=== PATIENT | female | born 1965 | race Caucasian/White ===

== ENCOUNTER 2024-11-30 21:27 | Emergency (ER) | payer MEDICAID, SELFPAY ==
--- NOTE | ~2024-11-30 | CT_ITS ---
EXAMINATION: CTA chest PE abdomen pel DATE: 12/01/2024 0:00 CDT INDICATION: Shortness of breath. Chest tightness with nausea. Plasma donation earlier today TECHNIQUE: Computed tomographic angiography (CTA) of the chest was performed, along with multiple con tiguous axial images of the abdomen and pelvis with 100 mL Omnipaque-350 intravenous contrast. The do se-length product was 2115.24 mGy-cm. Maximum intensity projection 3D-reconstructions of the aorta an d other arteries were constructed by the technologist on a separate workstation. FINDINGS/OBSERVATIONS: PULMONARY ARTERIES: No filling defect is identified within the main or proximal pulmonary artery. The main pulmonary artery is not enlarged. THORACIC AORTA: No aneurysmal dilatation or dissection is present. The great vessels are intact LUNGS: The lungs are clear MEDIASTINUM: No morphologically suspicious or pathologically enlarged lymph nodes are identified with in the mediastinum or bilateral axilla. BONES OF THE CHEST: No acute fracture. No significant degenerative disease. No lytic or blastic lesions. HEART: The heart is of normal size, without pericardial effusion. LIVER: The liver enhances homogeneously and is enlarged measuring 19 cm in longitudinal dimension. GALLBLADDER AND BILIARY SYSTEM: The gallbladder is only minimally distended, and otherwise unremarkable. PANCREAS: The pancreas enhances homogeneously without ductal dilatation. SPLEEN: The spleen enhances homogeneously and is not enlarged measuring 8 cm in longitudinal dimension. KIDNEYS: The bilateral kidneys enhance symmetrically without hydronephrosis or renal calculi. ADRENAL GLANDS: Unremarkable. GASTROINTESTINAL TRACT: Retained gastric contents within the distended stomach suggesting recent oral intake. Significant fecal stasis within the colon. Colonic diverticulosis without surrounding inflammatory change. APPENDIX: The air-filled appendix is of normal caliber (axial series, images 116 through 130). VASCULATURE: Unremarkable. No aneurysmal dilatation or significant stenosis. LYMPH NODES: No pathologically enlarged or morphologically suspicious lymph nodes within the retroperitoneum or at the root of the mesentery. PELVIC STRUCTURES: The bladder is only minimally distended, and otherwise unremarkable. The uterus is anteverted and anteflexed BODY WALL AND MUSCULOSKELETAL: Small fat-containing umbilical hernia. Straightening of the normal lordotic curvature of the lumbar spine, likely muscular in origin. No sig nificant degenerative disease within the thoracic or lumbosacral spines. IMPRESSION: No pulmonary embolus. No aortic dissection. The lungs are clear. Hepatomegaly. No acute pathology within the abdomen or pelvis, as detailed above. Reviewed, dictated and finalized at location A.
--- NOTE | 2024-11-30 21:33 | ECG_ITS ---
Test Date: 2024-11-30 21:51:04 Measurements Intervals [place] Rate: 49 P: 33 SD: 145 QRS: -48 QRSD: 88 T: 46 QT: 428 QTc: 387 Interpretive Statements SINUS BRADYCARDIA LOW QRS VOLTAGE IN PRECORDIAL LEADS [QRS DEFLECTION < 1.0 mV IN CHEST LEADS] PATTERN CONSISTENT WITH PULMONARY DISEASE LEFT ANTERIOR FASCICULAR BLOCK [QRS AXIS <= -45, QR IN I, RS IN II] ABNORMAL ECG No previous ECG available for comparison Electronically Signed On 12-01-2024 12:22:56 CDT by Michel Woody M.D.
[2024-11-30 21:55] VITALS: BP 147/86; PULSE 47; RESP 16; TEMP 36.6; O2SAT 100
[2024-11-30 22:38] VITALS: BP 160/103; PULSE 60; RESP 17; O2SAT 100
[2024-11-30 22:54] LABS: Basophils Absolute Auto 0.1 K/mm3 (0.0-0.1); Basophils Percent Auto 0.6 % (0.2-1.2); Eosinophils Absolute Auto 0.3 K/mm3 (0-0.3); Eosinophils Percent Auto 2.5 % (0-4.4); Hematocrit 42.6 % (37.0-47.0); Hemoglobin 14.1 g/dL (12.0-15.0); Immature Granulocyte Absolute 0.05 K/mm3 (0.00-0.031); Immature Granulocyte Percent A 0.5 % (0-0.5); Lymphocytes Absolute Auto 3.35 K/mm3 (0.9-3.2); Lymphocytes Percent Auto 31.9 % (18.3-44.2); Mean Corpuscular HGB Conc 33.1 g/dl (32-36); Mean Corpuscular Hemoglobin 29.1 pg (26-34); Mean Platelet Volume 10.1 fl (7.4-10.4); Monocytes Percent Auto 9.6 % (2.6-8.5); Neutrophils Absolute Auto 5.8 K/mm3 (1.3-6.7); Neutrophils Percent Auto 54.9 % (45.5-73.1); Platelet Count Result 280 k/mm3 (150-375); Red Blood Count 4.84 M/mm3 (4.2-5.4); Red Cell Distribution Width 13.1 % (11.5-14.5); White Blood Count 10.5 K/mm3 (4.5-10.0)
[2024-11-30 23:07] LABS: Alanine Aminotransferase 28 U/L (6-35); Albumin Level 4.3 g/dL (3.5-5.1); Alkaline Phosphatase 105 U/L (38-126); Anion Gap 12 mmol/L (4-12); Aspartate Amino Transferase 29 U/L (14-36); Bilirubin,Total 1.3 mg/dL (0.2-1.3); Blood Urea Nitrogen 16 mg/dL (7-17); Calcium 9.3 mg/dL (8.4-10.2); Carbon Dioxide 23 mmol/L (22-30); Chloride 105 mmol/L (98-107); Estimated CRCL calculation 69 ml/min; Estimated Glomerular Filt Rate > 60; Glucose 106 mg/dL (65-110); Lipase 75 U/L (23-300); Potassium 4.3 mmol/L (3.4-5.0); Sodium 140 mmol/L (137-145)
[2024-11-30 23:28] LABS: Partial Thromboplastin Time 29.9 Seconds (22.3-36.8); Prothrombin Time 13.7 Seconds (11.1-14.7); Troponin I < 0.012 ng/mL (0.000-0.034)
[2024-11-30] MEDS: SODIUM CHLORIDE 0.9% IV 1,000 ML 999 ML IV CONT (23:35)
--- NOTE | 2024-11-30 23:41 | PC.NURSE ---
Patient refused covid swab. EDP notified and verbalized the okay to cancel order.
[2024-12-01 00:02] LABS: D Dimer < 0.27 ug/mL (<0.48)
[2024-12-01 00:11] LABS: Lactic Acid Reflex 1.2 mmol/L (0.7-2.0)
[2024-12-01 00:25] VITALS: PULSE 63; RESP 17; O2SAT 97
[2024-12-01 00:29] LABS: Add Urine Microscopic? YES; Appearance Urine Cloudy (Clear); Bacteria Urine None Seen /hpf; Bilirubin Urine Negative (Negative); Blood Urine Negative (Negative); Color Urine Yellow (Yellow); Glucose Urine UA Negative (Negative); Ketones Urine Trace mg/dL (Negative); Leukocyte Esterase Ur 1+ LEU/UL (Negative); Nitrate Urine Negative (Negative); Non Pathogenic Casts 0-2; Protein Urine Negative (Negative); RBC Urine 0-2 /hpf (0-2); Specific Grav Ur > 1.045 (1.001-1.035); Squamous Epithelial Cell Urine None Seen /hpf (Few)
--- NOTE | 2024-12-01 00:33 | ED.GENADULT ---
HPI - General Adult General Chief complaint: Nausea/Vomiting/Diarrhea Stated complaint: Nausea, left neck/upper back pain-gave Plasma toda Time Seen by Provider: 11/30/24 22:53 History of Present Illness HPI narrative: Patient is a 59-year-old female who presents emergency department with chief complaint of left-sided neck and upper back pain patient reports she gave plasma today and was told to watch for signs of blood clot the patient states she had veins that blue during the procedure and reports that she has felt a little short of breath and some tightness in her chest. The patient states that when she has been breathing this where little bit of a tingling around her mouth the patient denies weakness in her arms or legs Related Data Allergies Allergy/AdvReac Type Severity Reaction Status Date / Time epinephrine Allergy Severe Anaphylaxis Verified 11/30/24 21:31 Review of Systems Review of Systems: A 10 system review of systems was completed on the patient and is negative except for what is stated in the HPI. Nursing and ancillary documentation was reviewed. Exam Narrative: GENERAL: Well-appearing, well-nourished, and in no acute distress. HEAD: Normocephalic, atraumatic. EYES: PERRLA and EOMI. ENT: Nares clear, no rhinorrhea or epistaxis. Mucous membranes moist. NECK: Supple. CHEST: Clear to auscultation. No respiratory distress. HEART: Regular rate and rhythm. No murmur heard. Normal peripheral pulses. ABDOMEN: Soft, nontender, nondistended, normal active bowel sounds. EXTREMITIES: Normal range of motion. No edema. SKIN: Warm, dry, no rash. There is bruising present in the left antecubital fossa NEURO: No focal deficits. Alert and oriented x3. PSYCH: Normal mood and affect. Course Vital Signs Vital signs: Vital Signs Temperature 36.6 C 11/30/24 21:55 Pulse Rate 47 L 11/30/24 21:55 Respiratory Rate 16 11/30/24 21:55 Blood Pressure 147/86 H 11/30/24 21:55 Pulse Oximetry 100 11/30/24 21:55 Temperature 36.6 C 11/30/24 21:55 Pulse Rate 63 12/01/24 00:25 Respiratory Rate 17 12/01/24 00:25 Blood Pressure 160/103 H 11/30/24 22:38 Pulse Oximetry 97 12/01/24 00:25 Medical Decision Making [facility] Narrative Medical decision making narrative: Differential diagnosis includes pulmonary embolism, upper extremity DVT, electrolyte abnormality, UTI Laboratory studies were obtained showed normal CBC troponin was negative the D-dimer was negative urinalysis showed 1+ leukocyte esterase and 11-20 white blood cells urine CTA chest with abdomen pelvis showed No pulmonary embolus. No aortic dissection. The lungs are clear. Hepatomegaly. No acute pathology within the abdomen or pelvis, as detailed above. Vital Signs Vital Signs: Vital Signs Temperature 36.6 C 11/30/24 21:55 Pulse Rate 47 L 11/30/24 21:55 Respiratory Rate 16 11/30/24 21:55 Blood Pressure 147/86 H 11/30/24 21:55 Pulse Oximetry 100 11/30/24 21:55 Temperature 36.6 C 11/30/24 21:55 Pulse Rate 63 12/01/24 00:25 Respiratory Rate 17 12/01/24 00:25 Blood Pressure 160/103 H 11/30/24 22:38 Pulse Oximetry 97 12/01/24 00:25 Lab Data 11/30/24 22:48 11/30/24 22:48 Labs: Lab Results 11/30/24 11/30/24 12/01/24 Range/Units 22:48 23:38 00:18 WBC 10.5 H (4.5-10.0) K/mm3 RBC 4.84 (4.2-5.4) M/mm3 Hgb 14.1 (12.0-15.0) g/dL Hct 42.6 (37.0-47.0) % MCV 88.0 (80-100) fl MCH 29.1 (26-34) pg MCHC 33.1 (32-36) g/dl RDW 13.1 (11.5-14.5) % Plt Count 280 (150-375) k/mm3 MPV 10.1 (7.4-10.4) fl Immature Gran % (Auto) 0.5 (0-0.5) % Neut % (Auto) 54.9 (45.5-73.1) % Lymph % (Auto) 31.9 (18.3-44.2) % [place] % (Auto) 9.6 H (2.6-8.5) % Eos % (Auto) 2.5 (0-4.4) % Baso % (Auto) 0.6 (0.2-1.2) % Lymph # (Auto) 3.35 H (0.9-3.2) K/mm3 [place] # (Auto) 1.0 H (0.1-0.6) K/mm3 Eos # (Auto) 0.3 (0-0.3) K/mm3 Baso # (Auto) 0.1 (0.0-0.1) K/mm3 Abs Immat Gran (auto) 0.05 H (0.00-0.031) K/mm3 Absolute Neuts (auto) 5.8 (1.3-6.7) K/mm3 Absolute Nucleated RBC 0.000 (0.0-0.012) K/mm3 Nucleated RBC % 0.0 (0.0-0.2) % PT 13.7 (11.1-14.7) Seconds INR 1.0 APTT 29.9 (22.3-36.8) Seconds D-Dimer < 0.27 (<0.48) ug/mL Sodium 140 (137-145) mmol/L Potassium 4.3 (3.4-5.0) mmol/L Chloride 105 (98-107) mmol/L Carbon Dioxide 23 (22-30) mmol/L Anion Gap 12 (4-12) mmol/L BUN 16 (7-17) mg/dL Creatinine 0.80 (0.7-1.0) mg/dL Estim Creat Clear Calc 69 ml/min Estimated GFR > 60 (59 - ) Glucose 106 (65-110) mg/dL Lactic Acid 1.2 (0.7-2.0) mmol/L Calcium 9.3 (8.4-10.2) mg/dL Magnesium 2.0 (1.6-2.3) mg/dL Total Bilirubin 1.3 (0.2-1.3) mg/dL AST 29 (14-36) U/L ALT 28 (6-35) U/L Alkaline Phosphatase 105 (38-126) U/L Troponin I < 0.012 (0.000-0.034) ng/mL Total Protein 8.0 (6.3-8.2) g/dL Albumin 4.3 (3.5-5.1) g/dL Lipase 75 (23-300) U/L Urine Color Yellow (Yellow) Urine Appearance Cloudy H (Clear) Urine pH 7.0 (5.0-9.0) Ur Specific [place] > 1.045 H (1.001-1.035) Urine Protein Negative (Negative) mg/dL Urine Glucose (UA) Negative (Negative) mg/dL Urine Ketones Trace H (Negative) mg/dL Ur Blood (Man) Negative (Negative) Urine Nitrate Negative (Negative) Urine Bilirubin Negative (Negative) Urine Urobilinogen 1.0 (<2.0) mg/dL Leukocyte Esterase Rfl 1+ H (Negative) JARED/UL Urine RBC 0-2 (0-2) /hpf Urine WBC 11-20 H (0-3) /hpf Ur Squamous Epith Cells None seen (Few) /hpf Urine Bacteria None seen /hpf Urine Casts 0-2 Discharge Plan Discharge Clinical Impression: Atypical chest pain, Nausea, Upper extremity pain, UTI (urinary tract infection) Patient Disposition: Home, Self-Care Condition: Stable Instructions: Antibiotic Form, Chest Pain (ED), Urinary Tract Infection in Women (ED), Acute Nausea and Vomiting (ED), Arm Pain (ED) Additional Instructions: You have a 7:00 a.m. appointment scheduled for ultrasounds of your arms to make sure that there is no blood clot after having the blood draws on donating plasma. Please arrive prior to 7:00 a.m. If you develop weakness on 1 side of your body changes in your speech or other concerns please return to the emergency department immediately Patient Language: Tajik Prescriptions: New ondansetron 4 mg tablet,disintegrating 4 mg PO Q8H PRN (Reason: nausea and vomiting) Qty: 10 0RF Follow-up/Referrals: Lucero Rizzo DO [Physician] - PHYSICIAN,[employer]ING OPERATOR [Primary Care Provider] - Time of Disposition: 00:39
== END 2024-12-01 01:15 | disposition home or self-care (01) ==
PROVIDERS: Emergency Provider Emergency Medicine
DX: N39.0 Urinary tract infection, site not specified (principal); R07.89 Other chest pain; R11.0 Nausea; M79.603 Pain in arm, unspecified; R00.1 Bradycardia, unspecified; I44.4 Left anterior fascicular block; R16.0 Hepatomegaly, not elsewhere classified
CPT/HCPCS: 36415; 71275; 74177; 80053; 81001; 83605; 83690; 83735; 84484; 85025; 85380; 85610; 85730; 87086; 93005; 96360; 99284; J7030; Q9967

== ENCOUNTER 2024-12-01 07:13 | Outpatient (CLI) | payer MEDICAID, SELFPAY ==
--- NOTE | ~2024-12-01 | US_ITS ---
RIGHT UPPER EXTREMITY VENOUS ULTRASOUND Ordering provider: Sumit Jin MD History: . Pain eval DVT . Comparison: None. FINDINGS: --JUGULAR: Patent and free of thrombus. Normal compressibility, phasic flow and augmentation. --SUBCLAVIAN: Patent and free of thrombus. Normal compressibility, phasic flow and augmentation. --AXILLARY: Patent and free of thrombus. Normal compressibility, phasic flow and augmentation. --BRACHIAL: Patent and free of thrombus. Normal compressibility, phasic flow and augmentation. --CEPHALIC: Patent and free of thrombus. Normal compressibility, phasic flow and augmentation. --BASILIC: Patent and free of thrombus. Normal compressibility, phasic flow and augmentation. --RADIAL: Patent and free of thrombus. Normal compressibility, phasic flow and augmentation. --ULNAR: Patent and free of thrombus. Normal compressibility, phasic flow and augmentation. IMPRESSION: Negative right upper extremity venous US. No deep vein thrombosis. LEFT UPPER EXTREMITY VENOUS ULTRASOUND Ordering provider: Sumit Jin MD History: . Pain eval DVT . Comparison: None. FINDINGS: --JUGULAR: Patent and free of thrombus. Normal compressibility, phasic flow and augmentation. --SUBCLAVIAN: Patent and free of thrombus. Normal compressibility, phasic flow and augmentation. --AXILLARY: Patent and free of thrombus. Normal compressibility, phasic flow and augmentation. --BRACHIAL: Patent and free of thrombus. Normal compressibility, phasic flow and augmentation. --CEPHALIC: Patent and free of thrombus. Normal compressibility, phasic flow and augmentation. --BASILIC: Patent and free of thrombus. Normal compressibility, phasic flow and augmentation. --RADIAL: Patent and free of thrombus. Normal compressibility, phasic flow and augmentation. --ULNAR: Patent and free of thrombus. Normal compressibility, phasic flow and augmentation. IMPRESSION: Negative left upper extremity venous US. No deep vein thrombosis. Reviewed, dictated and finalized at location A. IMPRESSION: Negative right upper extremity venous US. No deep vein thrombosis. LEFT UPPER EXTREMITY VENOUS ULTRASOUND Ordering provider: Sumit Jin MD History: . Pain eval DVT . Comparison: None. FINDINGS: --JUGULAR: Patent and free of thrombus. Normal compressibility, phasic flow and augmentation. --SUBCLAVIAN: Patent and free of thrombus. Normal compressibility, phasic flow and augmentation. --AXILLARY: Patent and free of thrombus. Normal compressibility, phasic flow an d augmentation. --BRACHIAL: Patent and free of thrombus. Normal compressibility, phasic flow a nd augmentation. --CEPHALIC: Patent and free of thrombus. Normal compressibility, phasic flow an d augmentation. --BASILIC: Patent and free of thrombus. Normal compressibility, phasic flow an d augmentation. --RADIAL: Patent and free of thrombus. Normal compressibility, phasic flow and augmentation. --ULNAR: Patent and free of thrombus. Normal compressibility, phasic flow and augmentation.
== END 2024-12-01 07:14 | disposition home or self-care (01) ==
PROVIDERS: PCP Family Medicine; Visit Provider Emergency Medicine
DX: M79.662 Pain in left lower leg (principal); M79.661 Pain in right lower leg
CPT/HCPCS: 93970